=== PATIENT | male | born 1985 | race Caucasian/White ===

== ENCOUNTER 2022-11-11 12:23 | Emergency (ER) | payer OTHER, SELFPAY ==
[2022-11-11 12:30] VITALS: BP 140/83; PULSE 60; RESP 18; TEMP 36.6; O2SAT 100; BMI 20.9
--- NOTE | 2022-11-11 12:30 | ED_ITS ---
HPI - General Adult General Chief complaint: Psychiatric Symptoms Stated complaint: Psychiatric eval Time Seen by Provider: 11/11/22 12:40 Related Data Allergies Allergy/AdvReac Type Severity Reaction Status Date / Time No Known Allergies Allergy Verified 11/11/22 12:30 [facility], [facility] Social History Social History Advance Directives: No Physical Exam ED Vital Signs: Vital Signs - 24 hr 11/11/22 12:30 Temperature 97.8 F Pulse Rate 60 Respiratory Rate 18 Blood Pressure 140/83 H Pulse Oximetry 100 Oxygen Delivery Method Room Air BMI result Body Mass Index 20.9 Course Course Course Narrative: RME- 37 year old male presents for evaluation of psych issues. He presents with his mother. Has a history of severe OCD and anxiety. Reports decreased appetite, has not been on his meds for about a year. Plan to be evaluated by the care team Reevaluation(s) Reevaluation #1: Patient expressing desire to leave. He denies any complaints or concerns at this time. He is not on a Section 12 and he is not suicidal. The patient is able to leave against medical advice. Three explain to the patient's mother that we are not able to hold him against his will as he does not appear to be a threat to himself or anybody else at this time. Time: 12:58 Reevaluation #2: I, Farzana Bahena PA-C, signed up for this patient after he had a rapid medical evaluation. The patient left without completing treatment prior to my examination. See Romel Arroyo's note above. Discharge Plan Discharge Clinical Impression: Acute anxiety Patient Disposition: Left W/O Completing Treatment Interventions: [place]-Suicide Risk Severity Scale Last Done: 11/11/22 13:12 ED Discharge Assessment Last Done: 11/11/22 13:12 Discharge Date/Time: 11/11/22 13:16
--- NOTE | 2022-11-11 13:16 | PC.NURSE ---
Mukul was seen at triage in emergency dept. when brought back to the POD Mukul stated he no longer wanted to be seen or seek treatment for anxiety. Mukul denies SI/HI and is not on a section 12. Mukul is leaving AMA.
== END 2022-11-11 13:16 | disposition left against medical advice (07) ==
PROVIDERS: Emergency Provider Emergency Medicine
DX: F41.9 Anxiety disorder, unspecified (principal); F42.9 Obsessive-compulsive disorder, unspecified
CPT/HCPCS: 99283